=== PATIENT | female | born 1980 | race Caucasian/White ===

== ENCOUNTER → 2017-09-15 | Outpatient (CLI) | payer BC ==
[2017-09-15 12:38] LABS: T4, Free (Free Thyroxine) 0.81 ng/dL (0.78-2.19)
== END | disposition home or self-care (01) ==
LOC: LABWHC1 11:15
PROVIDERS: ATTEND Internal Medicine Endocrinology, Diabetes & Metabolism
DX: D35.2 Benign neoplasm of pituitary gland (principal)
CPT/HCPCS: 36415; 84146; 84439; 84443

== ENCOUNTER → 2018-02-21 | Outpatient (CLI) | payer BC ==
[2018-02-21 09:11] LABS: T4, Free (Free Thyroxine) 1.17 ng/dL (0.78-2.19)
[2018-02-21 18:28] LABS: ACTH 45.1 pg/mL (0.00-45.99)
== END | disposition home or self-care (01) ==
LOC: LABWHC1 08:07
PROVIDERS: ATTEND Internal Medicine Endocrinology, Diabetes & Metabolism
DX: E03.8 Other specified hypothyroidism (principal); D35.2 Benign neoplasm of pituitary gland
CPT/HCPCS: 36415; 82024; 82533; 84146; 84439; 84443

== ENCOUNTER → 2018-04-05 | Outpatient (CLI) | payer BC | END | disposition home or self-care (01) | LOC: LABWHC1 12:27 | PROVIDERS: ATTEND Internal Medicine Endocrinology, Diabetes & Metabolism | DX: D35.2 Benign neoplasm of pituitary gland (principal); E03.8 Other specified hypothyroidism | CPT/HCPCS: 82530 ==

== ENCOUNTER → 2019-02-23 | Outpatient (CLI) | payer BC ==
[2019-02-23 16:09] LABS: T4, Free (Free Thyroxine) 0.9 ng/dL (0.80-1.80)
[2019-02-23 17:06] LABS: ACTH 17.7 pg/mL (0.00-45.99)
== END | disposition home or self-care (01) ==
LOC: LABWHC1 10:00
PROVIDERS: ATTEND Internal Medicine Endocrinology, Diabetes & Metabolism
DX: D35.2 Benign neoplasm of pituitary gland (principal); E03.8 Other specified hypothyroidism
CPT/HCPCS: 36415; 82024; 82533; 84146; 84439; 84443

== ENCOUNTER → 2020-04-19 | Outpatient (CLI) | payer BC ==
[2020-04-19 18:12] LABS: Prolactin 9.3 ng/mL (2.8-29.2); T4, Free (Free Thyroxine) 1.1 ng/dL (0.80-1.80)
== END | disposition home or self-care (01) ==
LOC: LABWHC1 08:41
PROVIDERS: ATTEND Internal Medicine Endocrinology, Diabetes & Metabolism
DX: D35.2 Benign neoplasm of pituitary gland (principal); E03.8 Other specified hypothyroidism
CPT/HCPCS: 36415; 84146; 84439; 84443

== ENCOUNTER → 2021-04-23 | Outpatient (CLI) | payer BC ==
[2021-04-23 21:12] LABS: Prolactin 25.8 ng/mL (2.800-29.200); T4, Free (Free Thyroxine) 0.88 ng/dL (0.800-1.800)
[2021-04-23 21:32] LABS: Thyroid Peroxidase Antibodies <9.0 U/mL (0.0-33.0)
== END | disposition home or self-care (01) ==
LOC: LABWHC1 10:56
PROVIDERS: ATTEND Midwife
DX: N92.1 Excessive and frequent menstruation with irregular cycle (principal)
CPT/HCPCS: 36415; 84146; 84439; 84443; 86376; 86800

== ENCOUNTER → 2024-04-28 | Outpatient (CLI) | payer BC ==
[2024-04-28 15:57] LABS: T4, Free (Free Thyroxine) 1.01 ng/dL (0.80-1.80)
[2024-04-28 17:17] LABS: Follicle Stimulating Hormone 9.4 mIU/mL; Luteinizing Hormone 14.5 mIU/mL; Prolactin 20.3 ng/mL (2.800-29.200)
== END | disposition home or self-care (01) ==
LOC: LABWHC1 09:48
PROVIDERS: ATTEND Internal Medicine Endocrinology, Diabetes & Metabolism
CPT/HCPCS: 36415; 82024; 82533; 83001; 83002; 84146; 84305; 84439; 84443; 84480

== ENCOUNTER → 2024-05-03 | Outpatient (CLI) | payer BC ==
[2024-05-03 18:56] LABS: Prolactin 24.7 ng/mL (2.800-29.200)
[2024-05-04 18:15] LABS: Thyroid Stim Immun Quant <0.10 IU/L (<0.10)
== END | disposition home or self-care (01) ==
LOC: LABWHC1 08:36
CPT/HCPCS: 36415; 84146; 84305; 84443; 84445

== ENCOUNTER → 2024-05-05 | Outpatient (CLI) | payer BC ==
--- NOTE | 2024-05-05 15:56 | US ---
EXAMINATION TYPE: US thyroid st tissue head/neck DATE OF EXAM: 05/05/2024 COMPARISON: NONE CLINICAL INDICATION: Female, 43 years old with history of E03.8 OTHER SPECIFIED HYPOTHYROIDISM; hypot hyroidism TECHNIQUE: Grayscale and color Doppler imaging of the thyroid gland. FINDINGS: GLAND SIZE: Right Lobe: 4.6x1.3x1.4 cm Overall Parenchyma: heterogeneous Left Lobe: 4.2x1.1x1.1 cm Overall Parenchyma: heterogeneous Isthmus Thickness: 0.7 cm NODULES RIGHT: # of nodules measured on right: 0 LEFT: # of nodules measured on left: 0 ISTHMUS: # of nodules measured in the isthmus: 0 Bilateral neck scanned, no evidence of lymphadenopathy. IMPRESSION: Heterogenous thyroid gland without discrete thyroid nodule. [facility], , 05/05/2024 3:54 PM
== END | disposition home or self-care (01) ==
LOC: RADUSWWP 15:16
PROVIDERS: ATTEND Internal Medicine Endocrinology, Diabetes & Metabolism
DX: E03.8 Other specified hypothyroidism (principal)
CPT/HCPCS: 76536

== ENCOUNTER → 2024-05-22 | Outpatient (CLI) | payer BC ==
[2024-05-22 10:30] LABS: T4, Free (Free Thyroxine) 0.83 ng/dL (0.80-1.80)
[2024-05-22 11:30] LABS: Thyroid Peroxidase Antibodies 10.6 U/mL (0.0-33.0)
[2024-05-22 11:32] LABS: Prolactin 10.6 ng/mL (2.800-29.200)
== END | disposition home or self-care (01) ==
LOC: LABWHC1 06:49
PROVIDERS: ATTEND Internal Medicine Endocrinology, Diabetes & Metabolism
DX: D35.2 Benign neoplasm of pituitary gland (principal); E03.8 Other specified hypothyroidism
CPT/HCPCS: 36415; 82533; 84146; 84439; 84443; 84445; 84480; 86376

== ENCOUNTER → 2024-05-23 | Outpatient (CLI) | payer BC | END | disposition home or self-care (01) | LOC: LABWHC1 11:44 | PROVIDERS: ATTEND Internal Medicine Endocrinology, Diabetes & Metabolism | DX: D35.2 Benign neoplasm of pituitary gland (principal) | CPT/HCPCS: 36415; 82024 ==

== ENCOUNTER → 2024-06-23 | Outpatient (CLI) | payer BC ==
[2024-06-23 15:31] LABS: T4, Free (Free Thyroxine) 0.8 ng/dL (0.80-1.80)
[2024-06-23 15:33] LABS: Prolactin 31.7 ng/mL (2.800-29.200)
[2024-06-27 10:03] LABS: Cortisol, Urine Free by LC-MS 5.2 ug/L; Free Cortisol 24 Hour,Urine 15.6 ug/day (<45.0)
== END | disposition home or self-care (01) ==
LOC: LABWHC1 07:27
PROVIDERS: ATTEND Internal Medicine Endocrinology, Diabetes & Metabolism
DX: D35.2 Benign neoplasm of pituitary gland (principal)
CPT/HCPCS: 36415; 82530; 83520; 84146; 84439; 84443; 84481

== ENCOUNTER → 2024-11-01 | Outpatient (CLI) | payer BC ==
[2024-11-01 15:31] LABS: T4, Free (Free Thyroxine) 1.01 ng/dL (0.80-1.80)
== END | disposition home or self-care (01) ==
LOC: LABWHC1 10:34
PROVIDERS: ATTEND Internal Medicine Endocrinology, Diabetes & Metabolism
DX: D35.2 Benign neoplasm of pituitary gland (principal)
CPT/HCPCS: 36415; 82024; 82533; 84146; 84439; 84443; 84481

== ENCOUNTER → 2024-11-21 | Outpatient (CLI) | payer BC ==
--- NOTE | 2024-11-21 13:26 | CT ---
CT abdomen with and without contrast. HISTORY: Episode of hypertension, rule out adrenal mass. COMPARISON: None TECHNIQUE: Multiple axial images obtained through the abdomen before and after the uneventful adminis tration of IV contrast material. FINDINGS: The lung bases are clear. The gallbladder is normal without distention, wall thickening, pericholecystic fluid or gallstones. T here is no biliary ductal dilatation. There is no focal mass or organomegaly involving the liver, pancreas, spleen or adrenal glands. There is no solid renal mass or hydronephrosis and there is homogeneous contrast enhancement of the r enal parenchyma. The caliber the abdominal aorta is normal is no retroperitoneal adenopathy or hemorr [place]. The bowel loops are normal in caliber and there is no evidence of dilatation or obstruction. No infla mmatory changes are identified in the bowel wall or mesentery. There is no free intraperitoneal air or fluid. The osseous structures and soft tissues are intact. IMPRESSION: No significant abnormality seen. [facility], Workstation: [id number] 11/21/2024 1:23 PM
== END | disposition home or self-care (01) ==
LOC: RADCTMAIN 11:42
PROVIDERS: ATTEND Internal Medicine Endocrinology, Diabetes & Metabolism
DX: I10 Essential (primary) hypertension (principal)
CPT/HCPCS: 74170; Q9967